=== PATIENT | male | born 1990 | race Hispanic/Latino ===

== ENCOUNTER 2018-04-15 04:36 | Emergency (ER) | payer BC ==
--- NOTE | 2018-04-15 04:54 | ER ---
Nurse's Notes [facility] Name: Claudio Marte Age: 27 yrs Sex: Male : 1990 Arrival Date: 04/15/2018 Time: 04:37 Bed 16 Private MD: Diagnosis: Lumbago with sciatica, right side Presentation: 04/15 04:45 Presenting complaint: Patient states: "I'm having really bad lower back pain that comes jd3 down my legs. Normally I go to the chiropractor to get it re-aligned and it helps. I have a history of a pinched nerve.". Transition of care: patient was not received from another setting of care. Onset of symptoms was April 15, 2018. Risk Assessment: Do you want to hurt yourself or someone else? Patient reports no desire to harm self or others. Initial Sepsis Screen: Does the patient meet any 2 criteria? No. Patient's initial sepsis screen is negative. Does the patient have a suspected source of infection? No. Patient's initial sepsis screen is negative. Care prior to arrival: None. 04:45 Method Of Arrival: Ambulatory jd3 04:45 Acuity: BALDEMAR 4 jd3 Historical: - Allergies: 04:49 No Known Allergies; jd3 - Home Meds: 04:49 None [Active]; jd3 - PMHx: 04:49 None; jd3 - PSHx: 04:49 None; jd3 - Immunization history:: Adult Immunizations up to date. - Social history:: Smoking status: Patient/guardian denies using tobacco. - Ebola Screening: : Patient negative for fever greater than or equal to 101.5 degrees Fahrenheit, and additional compatible Ebola Virus Disease symptoms. Screenin:53 Abuse screen: Denies threats or abuse. Nutritional screening: No deficits noted. jd3 Tuberculosis screening: No symptoms or risk factors identified. Fall Risk Ambulatory Aid- None/Bed Rest/Nurse Assist (0 pts). Gait- Normal/Bed Rest/Wheelchair (0 pts) Mental Status- Oriented to own ability (0 pts). Total Martinez Fall Scale indicates No Risk (0-24 pts). Assessment: 04:51 General: Appears in no apparent distress. uncomfortable, Behavior is calm, cooperative, jd3 appropriate for age. Pain: Complains of pain in low back area Pain currently is 8 out of 10 on a pain scale. Quality of pain is described as aching. Neuro: Level of Consciousness is awake, alert, obeys commands, Oriented to person, place, time, situation, Appropriate for age Moves all extremities. Full function Gait is steady. Cardiovascular: Capillary refill < 3 seconds Patient's skin is warm and dry. Respiratory: Airway is patent Respiratory effort is even, unlabored, Respiratory pattern is regular, symmetrical. GI: No signs and/or symptoms were reported involving the gastrointestinal system. : No signs and/or symptoms were reported regarding the genitourinary system. EENT: No signs and/or symptoms were reported regarding the EENT system. Derm: No signs and/or symptoms reported regarding the dermatologic system. Musculoskeletal: Circulation, motion, and sensation intact. Range of motion: intact in all extremities. Vital Signs: 04:49 BP 148 / 79; Pulse 83; Resp 16 S; Temp 98.6(O); Pulse Ox 100% on R/A; Weight 105.23 kg jd3 (R); Height 5 ft. 6 in. (167.64 cm); Pain 8/10; 04:49 Body Mass Index 37.45 (105.23 kg, 167.64 cm) jd3 ED Course: 04:37 Patient arrived in ED. am2 04:44 Otf Lei MD is Attending Physician. 04:45 Jose Eduardo Marinelli, RN is Primary Nurse. jd3 04:49 Triage completed. jd3 04:51 Arm band placed on. jd3 04:53 Patient has correct armband on for positive identification. Bed in low position. Call jd3 light in reach. Side rails up X 1. Adult w/ patient. 04:53 No provider procedures requiring assistance completed. Patient did not have IV access jd3 during this emergency room visit. 04:54 Huber Castellano MD is Referral Physician. Administered Medications: No medications were administered Outcome: 04:54 Discharge ordered by . 05:10 Discharged to home via wheelchair, with family. jd3 05:10 Condition: stable 05:10 Discharge instructions given to patient, family, Instructed on discharge instructions, follow up and referral plans. medication usage, Demonstrated understanding of instructions, follow-up care, medications, Prescriptions given X 3. 05:10 Patient left the ED. jd3 Signatures: Taylor Gipson am2 Otf Lei MD MD gs Jose Eduardo Marinelli, NED RN jd3
--- NOTE | 2018-04-15 04:54 | EDPHYS ---
Physician Documentation [facility] Name: Claudio Marte Age: 27 yrs Sex: Male : 1990 Arrival Date: 04/15/2018 Time: 04:37 Bed 16 Private MD: ED Physician Otf Lei HPI: 04/15 04:52 This 27 yrs old Male presents to ER via Ambulatory with complaints of Back gs Pain. 04:52 The patient presents with pain that is acute. The symptoms are located in the low back. gs Onset: The symptoms/episode began/occurred 2 day(s) ago, and became persistent. The pain does not radiate. Associated signs and symptoms: Pertinent negatives: incontinence, urinary retention. Modifying factors: the patient symptoms are aggravated by any movement, bending. Severity of symptoms: At their worst the symptoms were moderate, in the emergency department the symptoms are unchanged. The patient has experienced similar episodes in the past, several times. Historical: - Allergies: 04:49 No Known Allergies; jd3 - Home Meds: 04:49 None [Active]; jd3 - PMHx: 04:49 None; jd3 - PSHx: 04:49 None; jd3 - Immunization history:: Adult Immunizations up to date. - Social history:: Smoking status: Patient/guardian denies using tobacco. - Ebola Screening: : Patient negative for fever greater than or equal to 101.5 degrees Fahrenheit, and additional compatible Ebola Virus Disease symptoms. ROS: 04:52 All other systems are negative. gs Exam: 04:52 Head/Face: Normocephalic, atraumatic. Eyes: Pupils equal round and reactive to light, gs extra-ocular motions intact. Lids and lashes normal. Conjunctiva and sclera are non-icteric and not injected. Cornea within normal limits. Periorbital areas with no swelling, redness, or edema. ENT: Nares patent. No nasal discharge, no septal abnormalities noted. Tympanic membranes are normal and external auditory canals are clear. Oropharynx with no redness, swelling, or masses, exudates, or evidence of obstruction, uvula midline. Mucous membranes moist. Neck: Trachea midline, no thyromegaly or masses palpated, and no cervical lymphadenopathy. Supple, full range of motion without nuchal rigidity, or vertebral point tenderness. No Meningismus. Chest/axilla: Normal chest wall appearance and motion. Nontender with no deformity. No lesions are appreciated. Cardiovascular: Regular rate and rhythm with a normal S1 and S2. No gallops, murmurs, or rubs. Normal PMI, no JVD. No pulse deficits. Respiratory: Lungs have equal breath sounds bilaterally, clear to auscultation and percussion. No rales, rhonchi or wheezes noted. No increased work of breathing, no retractions or nasal flaring. Abdomen/GI: Soft, non-tender, with normal bowel sounds. No distension or tympany. No guarding or rebound. No evidence of tenderness throughout. Skin: Warm, dry with normal turgor. Normal color with no rashes, no lesions, and no evidence of cellulitis. MS/ Extremity: Pulses equal, no cyanosis. Neurovascular intact. Full, normal range of motion. Neuro: Awake and alert, GCS 15, oriented to person, place, time, and situation. Cranial nerves II-XII grossly intact. Motor strength 5/5 in all extremities. Sensory grossly intact. Cerebellar exam normal. Normal gait. 04:52 Constitutional: The patient appears alert, awake. 04:52 Back: pain, that is moderate, of the right low back. Vital Signs: 04:49 BP 148 / 79; Pulse 83; Resp 16 S; Temp 98.6(O); Pulse Ox 100% on R/A; Weight 105.23 kg jd3 (R); Height 5 ft. 6 in. (167.64 cm); Pain 8/10; 04:49 Body Mass Index 37.45 (105.23 kg, 167.64 cm) jd3 MDM: 04:51 Patient medically screened. 04:52 Data reviewed: vital signs, nurses notes. Response to treatment: There is no gs appreciated change of the patient's symptoms at this time, and as a result, I will discharge patient. 04:52 Counseling: I had a detailed discussion with the patient and/or guardian regarding: the gs presence of at least one elevated blood pressure reading (>120/80) during this emergency department visit. Special discussion: I have referred the patient to see his PCP for further evaluation of high blood pressure. Administered Medications: No medications were administered Disposition: 04/15/18 04:54 Discharged to Home. Impression: Lumbago with sciatica, right side. - Condition is Stable. - Discharge Instructions: Sciatica, Back Exercises, [id number]. - Prescriptions for Naprosyn 500 mg Oral Tablet - take 1 tablet by ORAL route 2 times per day take with food; 20 tablet. Prednisone 20 mg Oral Tablet - take 1 tablet by ORAL route once daily for 5 days; 5 tablet. Tylenol- Codeine #4 300-60 mg Oral Tablet - take 1 tablet by ORAL route every 6 hours As needed; 6 tablet. - Medication Reconciliation Form, Thank You Letter, Antibiotic Education, Prescription Opioid Use form. - Follow up: Huber Castellano MD; When: 2 - 3 days; Reason: Re-evaluation by your physician. Signatures: Otf Lei MD MD gs Davies, Jonathon RN RN jd3 Corrections: (The following items were deleted from the chart) 05:10 04:54 04/15/2018 04:54 Discharged to Home. Impression: Lumbago with sciatica, right jd3 side. Condition is Stable. Forms are Medication Reconciliation Form, Thank You Letter, Antibiotic Education, Prescription Opioid Use. Follow up: Huber Castellano; When: 2 - 3 days; Reason: Re-evaluation by your physician. gs
== END 2018-04-15 05:10 | disposition home or self-care (01) ==
LOC: ER 04:36
DX: M54.41 Lumbago with sciatica, right side (principal)
CPT/HCPCS: 99282